=== PATIENT | female | born 1945 | race Caucasian/White ===

== ENCOUNTER 2021-05-01 06:27 | Inpatient (IN) | payer OTHER ==
[~2021-05-01] VITALS: Ht 177.8 cm; Wt 93.0 kg
[2021-05-01] MEDS ORDERED: NS 250 ML BAG IV ONE (09:55)
[2021-05-01] MEDS ORDERED: BENZOCAINE 20% GEL 32 GM BOTTLE MM ONE (09:55)
[2021-05-01] MEDS ORDERED: ARTICAINE HCL/EPINEPHRINE 4%/1:200,000 BIT 1.7 ML CARTRIDGE IJ ONE (09:55)
[2021-05-01 10:05] VITALS: BP_SYST 127
== END 2021-05-01 11:23 | disposition home or self-care (01) | DRG 145 ==
LOC: SMU 06:27 → EDSTATUS 12:45
PROVIDERS: ADMIT Dentist General Practice; ATTEND Dentist General Practice
PROC: 0NUT0JZ Supplement Right Mandible with Synthetic Substitute, Open Approach (ICD-10-PCS; 2021-05-01)
PROC: 0NUV0JZ Supplement Left Mandible with Synthetic Substitute, Open Approach (ICD-10-PCS; principal; 2021-05-01 09:05)
DX: M27.2 Inflammatory conditions of jaws (principal); Z20.822 Contact with and (suspected) exposure to COVID-19; M19.90 Unspecified osteoarthritis, unspecified site; Z96.659 Presence of unspecified artificial knee joint
CPT/HCPCS: 36415; 70140; J7050

== ENCOUNTER 2021-05-30 06:21 | Day surgery (SDC) | payer OTHER, SELFPAY ==
[~2021-05-30] VITALS: Ht 177.8 cm; Wt 93.0 kg
[2021-05-30 10:10] VITALS: BP_SYST 126
[2021-05-30] MEDS ORDERED: NS IRRIG SOLN 1000 ML IR ONE (14:00)
[2021-05-30] MEDS ORDERED: ARTICAINE HCL/EPINEPHRINE 4%/1:200,000 BIT 1.7 ML CARTRIDGE IJ ONE (14:00)
[2021-05-30] MEDS ORDERED: NS 250 ML BAG IV ONE (14:00)
== END 2021-05-30 10:10 | disposition home or self-care (01) ==
LOC: SDS 06:21 → SMU 06:22 → SDS 10:10
PROVIDERS: ATTEND Dentist General Practice
DX: M27.2 Inflammatory conditions of jaws (principal); I10 Essential (primary) hypertension; E78.5 Hyperlipidemia, unspecified; M17.0 Bilateral primary osteoarthritis of knee; Z79.899 Other long term (current) drug therapy; Z20.822 Contact with and (suspected) exposure to COVID-19
CPT/HCPCS: 21026; 21215; 21248; 36415; 70140; 87426; C1713 ×2; J7050